=== PATIENT | female | born 1940 | race Caucasian/White ===

== ENCOUNTER 2020-09-05 08:12 | Emergency (ER) | payer OTHER ==
[~2020-09-05] VITALS: Ht 167.6 cm; Wt 71.2 kg
[2020-09-05] MEDS ORDERED: NA P133E RC (09:00)
[2020-09-05] MEDS ORDERED: MAGN400O6 PO (09:00)
[2020-09-05] MEDS ORDERED: ALIR75PE SQ (09:00)
[2020-09-05] MEDS ORDERED: GABA-532 PO (09:00)
[2020-09-05] MEDS ORDERED: POLY17PO4 PO (09:00)
[2020-09-05] MEDS ORDERED: OXYB5TAB16 PO (09:00)
[2020-09-05] MEDS ORDERED: HYDR-4384 PO (09:00)
[2020-09-05] MEDS ORDERED: CHOL100040 PO (09:00)
[2020-09-05] MEDS ORDERED: SENN-261 PO (09:00)
[2020-09-05] MEDS ORDERED: FENO145T21 PO (09:00)
[2020-09-05] MEDS ORDERED: MULT-1018 PO (09:00)
[2020-09-05] MEDS ORDERED: PHEN28OI9 RC (09:00)
[2020-09-05] MEDS ORDERED: CRAN450C PO (09:00)
[2020-09-05] MEDS ORDERED: TICA60TA PO (09:00)
[2020-09-05] MEDS ORDERED: LISI2.5T2 PO (09:00)
[2020-09-05] MEDS ORDERED: BISA10SU11 RC (09:00)
[2020-09-05] MEDS ORDERED: ASPI-1420 PO (09:00)
[2020-09-05] MEDS ORDERED: ACET-868 PO (09:00)
[2020-09-05] MEDS ORDERED: MELA5TAB PO (09:00)
[2020-09-05] MEDS ORDERED: OMEG1CAP55 PO (09:00)
[2020-09-05] MEDS ORDERED: DICL100G16 TP (09:00)
[2020-09-05] MEDS ORDERED: LACT1CAP71 PO (09:00)
[2020-09-05] MEDS ORDERED: HYDR-4354 PO (09:00)
--- NOTE | 2020-09-05 09:04 | NUR ---
PATIENT FABIOLA FROM [facility]. AAOX3, RESPONDS APPROPRIATELY. PATIENT C/O NECK PAIN 8/10 FOR THE PAST 4 DAYS AND STATED THAT SHE HAD A FALL. WILL CARRY OUT ORDERS PER MD.
[2020-09-05 09:05] LABS: BASOPHILS % (AUTO) 0.5 % (0.0-2.0); EOSINOPHILS % (AUTO) 1.9 % (0.0-6.0); HEMATOCRIT 40 % (33-45); HEMOGLOBIN 13.2 g/dL (11.5-14.8); LYMPHOCYTES # (AUTO) 1.6 /CMM (0.8-4.8); LYMPHOCYTES % (AUTO) 22.1 % (20.0-44.0); MEAN CORPUSCULAR HGB CONC 33 g/dl (31.0-36.0); MEAN CORPUSCULAR VOLUME 92 fL (82-100); MONOCYTES # (AUTO) 0.6 /CMM (0.1-1.30); MONOCYTES % (AUTO) 7.9 % (2.0-12.0); NEUTROPHILS # (AUTO) 4.8 /CMM (1.8-8.9); NEUTROPHILS % (AUTO) 67.6 % (43.0-81.0); PLATELET COUNT (AUTO) 358 /CMM (150-450); RED BLOOD CELL COUNT(AUTO) 4.36 MIL/uL (4.0-5.2); WHITE BLOOD COUNT (AUTO) 7.2 K/uL (4.3-11.0)
[2020-09-05 09:18] LABS: CALCIUM, SERUM 8.9 mg/dL (8.5-10.1); CARBON DIOXIDE 27 mmol/L (21-32); CHLORIDE 105 mmol/L (98-107); CREATININE 0.8 mg/dL (0.6-1.3); GLUCOSE 103 mg/dL (74-106); POTASSIUM 3.4 mmol/L (3.5-5.1); SODIUM SERUM 142 mmol/L (136-145); UREA NITROGEN, BLOOD 22 mg/dL (7-18)
[2020-09-05 09:23] LABS: ALANINE AMINOTRANSFERASE 22 U/L (12-78); ALBUMIN 2.9 g/dL (3.4-5.0); ALKALINE PHOSPHATASE 43 U/L (46-116); ASPARTATE AMINOTRANSFERASE 23 U/L (15-37); BILIRUBIN,DIRECT 0.2 mg/dL (0.0-0.2); BILIRUBIN,TOTAL 0.6 mg/dL (0.2-1.0); TOTAL PROTEIN, SERUM 6.3 g/dL (6.4-8.2)
--- NOTE | 2020-09-05 10:45 | NUR ---
CALLED [facility] FOR AMBULANCE TRANSPORT. ETA UP TO 3-4 HOURS. WILL CALL BACK WITH ANY UPDATES ON THE TRANSFER. RESERVATION NUMBER [id number].
--- NOTE | 2020-09-05 11:08 | NUR ---
[facility] CALLED. ETA FOR AMBULANCE TRANSFER IS 30 MINUTES WITH [facility]
--- NOTE | 2020-09-05 11:44 | NUR ---
PATIENT A/OX4, BREATHING EVEN AND UNLABORED, NOS OB NOTED. IV removed. Catheter intact and site benign. Pressure and 4x4 applied to site. No bleeding noted.Patient discharged to home in stable condition. Written and verbal after care instructions given. Patient verbalizes understanding of instruction.
[2020-09-05 11:45] VITALS: BP 129/86
== END 2020-09-05 11:45 ==
LOC: ER 08:20
DX: S13.4XXA Sprain of ligaments of cervical spine, initial encounter (principal); S09.8XXA Other specified injuries of head, initial encounter; R07.81 Pleurodynia; I10 Essential (primary) hypertension; I25.10 Atherosclerotic heart disease of native coronary artery without angina pectoris; G47.00 Insomnia, unspecified; F03.90 Unspecified dementia, unspecified severity, without behavioral disturbance, psychotic disturbance, mood disturbance, and anxiety; Z88.6 Allergy status to analgesic agent; Z79.899 Other long term (current) drug therapy; Z79.82 Long term (current) use of aspirin; W19.XXXA Unspecified fall, initial encounter; Y93.89 Activity, other specified; Y92.89 Other specified places as the place of occurrence of the external cause; Y99.8 Other external cause status
CPT/HCPCS: 36415; 70450-TC; 71045-TC; 72125-TC; 80048-TC; 80076-TC; 84484-TC; 85025-TC

== ENCOUNTER 2020-10-18 15:41 | Emergency (ER) | payer MEDICARE, MEDICAID ==
[~2020-10-18] VITALS: Ht 152.4 cm; Wt 68.0 kg
[~2020-10-18 15:41] MED LIST: ACET-868 PO; ALIR75PE SQ; ASPI-1420 PO; BISA10SU11 RC; CHOL100040 PO; CRAN450C PO; DICL100G16 TP; FENO145T21 PO; GABA-532 PO; HYDR-4354 PO; HYDR-4384 PO; LACT1CAP71 PO; LISI2.5T2 PO; MAGN400O6 PO; MELA5TAB PO; MULT-1018 PO; NA P133E RC; OMEG1CAP55 PO; OXYB5TAB16 PO; PHEN28OI9 RC; POLY17PO4 PO; SENN-261 PO; TICA60TA PO
[2020-10-18 16:53] LABS: BASOPHILS % (AUTO) 0.3 % (0.0-2.0); EOSINOPHILS % (AUTO) 2.5 % (0.0-6.0); HEMATOCRIT 41 % (33-45); HEMOGLOBIN 13.3 g/dL (11.5-14.8); LYMPHOCYTES # (AUTO) 1.8 /CMM (0.8-4.8); LYMPHOCYTES % (AUTO) 24.6 % (20.0-44.0); MEAN CORPUSCULAR HGB CONC 33 g/dl (31.0-36.0); MEAN CORPUSCULAR VOLUME 95 fL (82-100); MONOCYTES # (AUTO) 0.5 /CMM (0.1-1.30); MONOCYTES % (AUTO) 7.6 % (2.0-12.0); NEUTROPHILS # (AUTO) 4.7 /CMM (1.8-8.9); PLATELET COUNT (AUTO) 449 /CMM (150-450); RED BLOOD CELL COUNT(AUTO) 4.32 MIL/uL (4.0-5.2); WHITE BLOOD COUNT (AUTO) 7.2 K/uL (4.3-11.0)
[2020-10-18] MEDS: IV NS 0.9% 1,000 ML BAG IV ONE (16:53)
[2020-10-18] MEDS ORDERED: HYDROCODONE/APAP 5/325MG TABLET ONE (16:54)
[2020-10-18 16:59] LABS: OCCULT BLOOD STOOL NEGATIVE (NEGATIVE)
[2020-10-18] MEDS: HYDROCODONE/APAP 5/325MG TABLET PO ONE (17:00)
[2020-10-18 17:04] LABS: CALCIUM, SERUM 9.1 mg/dL (8.5-10.1); CREATININE 0.9 mg/dL (0.6-1.3)
[2020-10-18 17:10] LABS: ALBUMIN 3.1 g/dL (3.4-5.0); BILIRUBIN,DIRECT 0.1 mg/dL (0.0-0.2); BILIRUBIN,TOTAL 0.2 mg/dL (0.2-1.0); TOTAL PROTEIN, SERUM 6.8 g/dL (6.4-8.2)
[2020-10-18 18:02] LABS: BILIRUBIN,URINE Negative (NEGATIVE); BLOOD, URINE Large Ery/uL (NEGATIVE); COLOR,URINE Pink (YELLOW); LEUKOCYTE ESTERASE ,URINE Small (NEGATIVE); NITRITE, URINE Negative (NEGATIVE); PH,URINE 7.5 (5.0-8.0); PROTEIN,URINE >=300 mg/dl (NEGATIVE); UGLUCOSE Negative (NEGATIVE)
[2020-10-18 18:12] LABS: BACTERIA,URINE 1+ /HPF (None Seen); RBC,URINE 21-50 /HPF (0-2); SQUAMOUS EPITHELIAL CELL,UR Few /HPF (None Seen)
[2020-10-18] MEDS ORDERED: LOPE2CAP PO (18:24)
[2020-10-18] MEDS ORDERED: METO25TA20 PO (18:24)
[2020-10-18 23:06] VITALS: BP 130/75
== END 2020-10-18 23:06 ==
LOC: ER 15:43
DX: S30.817A Abrasion of anus, initial encounter (principal); N39.0 Urinary tract infection, site not specified; R31.0 Gross hematuria; K64.5 Perianal venous thrombosis; K60.2 Anal fissure, unspecified; I25.10 Atherosclerotic heart disease of native coronary artery without angina pectoris; G47.00 Insomnia, unspecified; I10 Essential (primary) hypertension; Z86.73 Personal history of transient ischemic attack (TIA), and cerebral infarction without residual deficits; Z88.5 Allergy status to narcotic agent; Z79.82 Long term (current) use of aspirin; Z79.899 Other long term (current) drug therapy; X58.XXXA Exposure to other specified factors, initial encounter; Y93.89 Activity, other specified; Y92.89 Other specified places as the place of occurrence of the external cause; Y99.8 Other external cause status
CPT/HCPCS: 36415; 80048-TC; 80076-TC; 81001; 82272-TC; 83690-TC; 85025-TC; 85730-TC; 87086-TC; J7030

== ENCOUNTER 2020-12-25 21:58 | Emergency (ER) | payer MEDICARE, OTHER ==
[~2020-12-25] VITALS: Ht 152.4 cm; Wt 68.0 kg
[~2020-12-25 21:58] MED LIST changes: +LOPE2CAP PO; +METO25TA20 PO
--- NOTE | 2020-12-25 22:52 | NUR ---
FABIOLA FROM [facility] TO ER BED 16. AAOX3. NOT IN RESP DISTRESS. BREATHING EVEN AND UNLABORED. BORUGHT IN FOR A R OCIPITAL AREA PAIN WHICH STARTED AFTER SHE SLID OFF A CHAIR EARLIER THIS EVENING AT 6PM. PT DENIES KO. PAIN IS RATD6 05/03. DENIES ANY NAUSEA, VOMMITING AND DIZZYNESS. MD WAS AT THE BEDSIDE FOR EVAL. ORDERS RECEIVED, NOTED ANDNoreen RICHARDS OUT.
--- NOTE | 2020-12-25 23:39 | NUR ---
SPOKE WITH SIRIA FROM [facility]. RES #[id number] AND 1-3 HR ETA.
--- NOTE | 2020-12-26 00:09 | NUR ---
[facility]ulance eta [phone]
--- NOTE | 2020-12-26 02:41 | NUR ---
REPORT GIVEN TO JESS NORTON STAFF BRANT
--- NOTE | 2020-12-26 02:45 | NUR ---
[facility] ambulance at bedside for transport to [facility]
[2020-12-26 03:14] VITALS: BP 110/65
== END 2020-12-26 03:15 ==
LOC: ER 22:00
DX: R51.9 Headache, unspecified (principal); M54.2 Cervicalgia; I10 Essential (primary) hypertension; I25.10 Atherosclerotic heart disease of native coronary artery without angina pectoris; G47.00 Insomnia, unspecified; Z86.73 Personal history of transient ischemic attack (TIA), and cerebral infarction without residual deficits; Z88.6 Allergy status to analgesic agent; Z79.899 Other long term (current) drug therapy; Z79.82 Long term (current) use of aspirin; W01.0XXA Fall on same level from slipping, tripping and stumbling without subsequent striking against object, initial encounter; Y93.89 Activity, other specified; Y92.89 Other specified places as the place of occurrence of the external cause; Y99.8 Other external cause status
CPT/HCPCS: 70450-TC; 72125-TC

== ENCOUNTER 2021-04-28 00:29 | Emergency (ER) | payer MEDICARE, OTHER ==
[~2021-04-28] VITALS: Ht 152.4 cm; Wt 68.0 kg
--- NOTE | 2021-04-28 00:32 | NUR ---
pt bibpa c/o urinary frequency and burning. Pt aaox4 breathing evenly and unlabored. Pt states "i was here 3weeks ago for UTI and kidney stone, I think I still have a UTI" Pt attached to monitor and pox. Pt given blanket and call light within reach
--- NOTE | 2021-04-28 00:58 | NUR ---
lab at bedside
--- NOTE | 2021-04-28 01:13 | NUR ---
urine obtained and sent to lab
[2021-04-28 01:15] LABS: BASOPHILS % (AUTO) 0.3 % (0.0-2.0); EOSINOPHILS % (AUTO) 2.9 % (0.0-6.0); HEMATOCRIT 40 % (33-45); HEMOGLOBIN 12.7 g/dL (11.5-14.8); LYMPHOCYTES # (AUTO) 2.8 /CMM (0.8-4.8); MEAN CORPUSCULAR HGB CONC 32 g/dl (31.0-36.0); MEAN CORPUSCULAR VOLUME 94 fL (82-100); MONOCYTES # (AUTO) 0.8 /CMM (0.1-1.30); NEUTROPHILS # (AUTO) 6.5 /CMM (1.8-8.9); NEUTROPHILS % (AUTO) 61.8 % (43.0-81.0); PLATELET COUNT (AUTO) 298 /CMM (150-450); RED BLOOD CELL COUNT(AUTO) 4.31 MIL/uL (4.0-5.2); WHITE BLOOD COUNT (AUTO) 10.5 K/uL (4.3-11.0)
--- NOTE | 2021-04-28 01:33 | NUR ---
called lab for f/u on urine.
[2021-04-28 01:40] LABS: BILIRUBIN,URINE Negative (NEGATIVE); COLOR,URINE YELLOW (YELLOW); LEUKOCYTE ESTERASE ,URINE Moderate (NEGATIVE); NITRITE, URINE Negative (NEGATIVE); PH,URINE 7.5 (5.0-8.0); PROTEIN,URINE 100 mg/dl (NEGATIVE); UGLUCOSE Negative (NEGATIVE); UROBILINOGEN,URINE 0.2 EU/dL (0.2)
[2021-04-28 01:42] LABS: CALCIUM, SERUM 9.4 mg/dL (8.5-10.1); CARBON DIOXIDE 29 mmol/L (21-32); CHLORIDE 104 mmol/L (98-107); CREATININE 0.8 mg/dL (0.6-1.3); GLUCOSE 113 mg/dL (74-106); POTASSIUM 4.8 mmol/L (3.5-5.1); SODIUM SERUM 139 mmol/L (136-145); UREA NITROGEN, BLOOD 32 mg/dL (7-18)
[2021-04-28 01:51] LABS: ALANINE AMINOTRANSFERASE 12 U/L (12-78); ALBUMIN 3.5 g/dL (3.4-5.0); ALKALINE PHOSPHATASE 48 U/L (46-116); ASPARTATE AMINOTRANSFERASE 18 U/L (15-37); BILIRUBIN,DIRECT 0.1 mg/dL (0.0-0.2); BILIRUBIN,TOTAL 0.3 mg/dL (0.2-1.0); LIPASE 403 U/L (73-393); TOTAL PROTEIN, SERUM 6.6 g/dL (6.4-8.2)
--- NOTE | 2021-04-28 02:06 | NUR ---
called lab to f/u on urine
[2021-04-28 02:22] LABS: BACTERIA,URINE Few /HPF (None Seen); SQUAMOUS EPITHELIAL CELL,UR Few /HPF (None Seen)
--- NOTE | 2021-04-28 02:22 | NUR ---
per lab, another five min for urine results
[2021-04-28 02:23] LABS: URINE AMORPHOUS PHOSPHATES Few /HPF (None Seen)
--- NOTE | 2021-04-28 02:51 | NUR ---
pt taken to ct
--- NOTE | 2021-04-28 04:15 | NUR ---
called [facility] to have image read
[2021-04-28] MEDS ORDERED: CEPH500T PO (04:59)
[2021-04-28] MEDS ORDERED: PHEN-704 PO (04:59)
[2021-04-28] MEDS ORDERED: CEPHALEXIN MONOHYDRATE 500 MG CAPSULE PO ONE ×2 (05:00→05:16)
--- NOTE | 2021-04-28 05:36 | NUR ---
[facility] ETA 830AM
--- NOTE | 2021-04-28 05:36 | NUR ---
attempted to give report to Ratna Patel, no answer
--- NOTE | 2021-04-28 05:37 | NUR ---
Julia velasquez in [facility] - 04/28/21 at 0537 by GAB[facility] transport eta [phone]
--- NOTE | 2021-04-28 05:37 | NUR ---
[facility] transport eta [phone]
--- NOTE | 2021-04-28 05:57 | NUR ---
attempted to give report to nicole haile for a second time, no answer
--- NOTE | 2021-04-28 06:40 | NUR ---
gave report to EMS
--- NOTE | 2021-04-28 06:41 | NUR ---
REPORT GIVEN TO JESS NORTON STAFF MELVI.
[2021-04-28 06:44] VITALS: BP 124/50
--- NOTE | 2021-04-28 06:45 | NUR ---
Patient discharged to home in stable condition. Written and verbal after care instructions given. Patient verbalizes understanding of instruction. Pt picked up by [facility] ambulance
== END 2021-04-28 06:45 ==
LOC: ER 00:31
DX: N30.00 Acute cystitis without hematuria (principal); I10 Essential (primary) hypertension; I25.10 Atherosclerotic heart disease of native coronary artery without angina pectoris; G47.00 Insomnia, unspecified; Z86.73 Personal history of transient ischemic attack (TIA), and cerebral infarction without residual deficits; Z88.6 Allergy status to analgesic agent; Z79.899 Other long term (current) drug therapy; Z79.82 Long term (current) use of aspirin
CPT/HCPCS: 36415; 80048-TC; 80076-TC; 81001; 83690-TC; 84484-TC; 85025-TC; 85730-TC; 87086-TC; 87186-TC

== ENCOUNTER 2022-04-12 22:52 | Emergency (ER) | payer MEDICARE, OTHER ==
[~2022-04-12] VITALS: Ht 167.6 cm; Wt 77.1 kg
[~2022-04-12 22:52] MED LIST changes: +CEPH500T PO; +PHEN-704 PO
--- NOTE | 2022-04-12 22:56 | NUR ---
FABIOLA FROM SNF C/O ABD PAIN AND BACK PAIN TOOK NORCO AT 2215. PT A/OX3. TOLERATING R/A WELL WITH NO SOB. CONNECTED PT TO POX AND MONITOR
--- NOTE | 2022-04-12 23:18 | NUR ---
PROJECT MANAGEMENT ENGINEER AT PT'S BEDSIDE
--- NOTE | 2022-04-12 23:28 | NUR ---
PT TAKEN TO CT VIA J[facility]
--- NOTE | 2022-04-12 23:42 | NUR ---
PT RETURNED TO ER BED [address]
[2022-04-12 23:55] LABS: BASOPHILS % (AUTO) 0.4 % (0.0-2.0); EOSINOPHILS % (AUTO) 4.6 % (0.0-6.0); HEMATOCRIT 39 % (33-45); HEMOGLOBIN 12.7 g/dL (11.5-14.8); MEAN CORPUSCULAR HGB CONC 33 g/dl (31.0-36.0); MEAN CORPUSCULAR VOLUME 90 fL (82-100); MONOCYTES # (AUTO) 0.5 K/uL (0.1-1.30); MONOCYTES % (AUTO) 7.7 % (2.0-12.0); NEUTROPHILS # (AUTO) 3.6 K/uL (1.8-8.9); NEUTROPHILS % (AUTO) 56.3 % (43.0-81.0); PLATELET COUNT (AUTO) 338 K/uL (150-450); WHITE BLOOD COUNT (AUTO) 6.4 K/uL (4.3-11.0)
--- NOTE | 2022-04-13 00:01 | NUR ---
URINE COLLECTEC AND SENT TO LAB
[2022-04-13 00:07] LABS: CARBON DIOXIDE 30 mmol/L (21-32); CHLORIDE 107 mmol/L (98-107); CREATININE 1.1 mg/dL (0.6-1.3); GLUCOSE 107 mg/dL (74-106); POTASSIUM 3.6 mmol/L (3.5-5.1); SODIUM SERUM 145 mmol/L (136-145); UREA NITROGEN, BLOOD 35 mg/dL (7-18)
[2022-04-13 00:20] LABS: ALANINE AMINOTRANSFERASE 17 U/L (12-78); ALBUMIN 3.5 g/dL (3.4-5.0); ALKALINE PHOSPHATASE 53 U/L (46-116); ASPARTATE AMINOTRANSFERASE 26 U/L (15-37); BILIRUBIN,DIRECT 0.1 mg/dL (0.0-0.2); BILIRUBIN,TOTAL 0.3 mg/dL (0.2-1.0); LIPASE 342 U/L (73-393); TOTAL PROTEIN, SERUM 6.6 g/dL (6.4-8.2)
[2022-04-13 00:50] LABS: BILIRUBIN,URINE NEGATIVE (NEGATIVE); COLOR,URINE YELLOW (YELLOW); LEUKOCYTE ESTERASE ,URINE LARGE (NEGATIVE); NITRITE, URINE NEGATIVE (NEGATIVE); PROTEIN,URINE TRACE mg/dl (NEGATIVE); UGLUCOSE NEGATIVE (NEGATIVE); UROBILINOGEN,URINE 0.2 EU/dL (0.2)
[2022-04-13] MEDS ORDERED: SULF1TAB48 PO (01:00)
--- NOTE | 2022-04-13 01:22 | NUR ---
[facility] ARRANGED 15-20 MINS
--- NOTE | 2022-04-13 01:27 | NUR ---
REPORT GIVEN TO SOFIA [facility]erald[facility] ARCHER
--- NOTE | 2022-04-13 01:41 | NUR ---
PT DISCHARGED BACK TO [facility] VIA [id number]. WRITTEN AND VERBAL AFTERCARE INSTRUCTIONS PROVIDED TO PATIENT, AND PT REPORTED UNDERSTANDING OF INSTRUCTIONS. ALL V/S WNL AT DISCHARGE.
[2022-04-13 01:42] VITALS: BP 125/49
[2022-04-13 06:49] LABS: BACTERIA,URINE 2+ /HPF (None Seen)
== END 2022-04-13 01:46 ==
LOC: ER 22:55
DX: N39.0 Urinary tract infection, site not specified (principal); I10 Essential (primary) hypertension; Z87.440 Personal history of urinary (tract) infections; Z87.42 Personal history of other diseases of the female genital tract; Z88.8 Allergy status to other drugs, medicaments and biological substances; Z79.899 Other long term (current) drug therapy
CPT/HCPCS: 36415; 80048-TC; 80076-TC; 81001; 83690-TC; 85025-TC; 87086-TC

== ENCOUNTER 2022-06-01 14:27 | Emergency (ER) | payer MEDICARE, OTHER ==
[~2022-06-01] VITALS: Ht 157.5 cm; Wt 68.0 kg
[~2022-06-01 14:27] MED LIST changes: +SULF1TAB48 PO
--- NOTE | 2022-06-01 15:59 | NUR ---
LOSS PREVENTION RESEARCH ENGINEER AT BEDSIDE FOR BLOOD DRAW
--- NOTE | 2022-06-01 16:14 | NUR ---
UNABLE TO PROVIDE URINE AT THIS TIME
[2022-06-01 16:21] LABS: BASOPHILS # (AUTO) 0.1 K/uL (0.0-0.2); BASOPHILS % (AUTO) 0.6 % (0.0-2.0); EOSINOPHILS % (AUTO) 4.2 % (0.0-6.0); HEMATOCRIT 35 % (33-45); HEMOGLOBIN 11.5 g/dL (11.5-14.8); LYMPHOCYTES # (AUTO) 1.9 K/uL (0.8-4.8); LYMPHOCYTES % (AUTO) 23.2 % (20.0-44.0); MEAN CORPUSCULAR HGB CONC 32 g/dl (31.0-36.0); MEAN CORPUSCULAR VOLUME 94 fL (82-100); MONOCYTES # (AUTO) 0.5 K/uL (0.1-1.30); MONOCYTES % (AUTO) 6.5 % (2.0-12.0); NEUTROPHILS # (AUTO) 5.3 K/uL (1.8-8.9); NEUTROPHILS % (AUTO) 65.5 % (43.0-81.0); PLATELET COUNT (AUTO) 283 K/uL (150-450); RED BLOOD CELL COUNT(AUTO) 3.78 MIL/uL (4.0-5.2); WHITE BLOOD COUNT (AUTO) 8.2 K/uL (4.3-11.0)
[2022-06-01] MEDS ORDERED: NITR50CA PO (16:22)
[2022-06-01] MEDS ORDERED: FURO-144 PO (16:22)
[2022-06-01] MEDS ORDERED: ATOR40TA PO (16:22)
[2022-06-01] MEDS ORDERED: TOLT4CAP14 PO (16:22)
--- NOTE | 2022-06-01 16:39 | NUR ---
URINE COLLECTED AND SENT TO LAB
--- NOTE | 2022-06-01 16:41 | NUR ---
TAKEN SOLUTION SPEC CT VIA [facility]
[2022-06-01] MEDS ORDERED: ACETAMINOPHEN 325 MG TABLET PO ONE (17:00)
[2022-06-01 17:02] LABS: ALANINE AMINOTRANSFERASE 35 U/L (12-78); ALKALINE PHOSPHATASE 50 U/L (46-116); ASPARTATE AMINOTRANSFERASE 53 U/L (15-37); BILIRUBIN,DIRECT 0.1 mg/dL (0.0-0.2); BILIRUBIN,TOTAL 0.4 mg/dL (0.2-1.0); CALCIUM, SERUM 8.7 mg/dL (8.5-10.1); CARBON DIOXIDE 25 mmol/L (21-32); CHLORIDE 103 mmol/L (98-107); CREATININE 1.5 mg/dL (0.6-1.3); GLUCOSE 104 mg/dL (74-106); LIPASE 226 U/L (73-393); POTASSIUM 3.7 mmol/L (3.5-5.1); SODIUM SERUM 138 mmol/L (136-145); TOTAL PROTEIN, SERUM 6.3 g/dL (6.4-8.2); UREA NITROGEN, BLOOD 37 mg/dL (7-18)
[2022-06-01] MEDS ORDERED: ACETAMINOPHEN 325 MG TABLET ONE (17:07)
[2022-06-01] MEDS ORDERED: HYDROCODONE/APAP 5/325MG TABLET ONE (17:22)
[2022-06-01] MEDS ORDERED: HYDROCODONE/APAP 5/325MG TABLET PO ONE (17:30)
[2022-06-01 17:50] LABS: BILIRUBIN,URINE NEGATIVE (NEGATIVE); COLOR,URINE YELLOW (YELLOW); LEUKOCYTE ESTERASE ,URINE MODERATE (NEGATIVE); NITRITE, URINE NEGATIVE (NEGATIVE); PH,URINE 8.5 (5.0-8.0); PROTEIN,URINE NEGATIVE (NEGATIVE); UGLUCOSE NEGATIVE (NEGATIVE); UROBILINOGEN,URINE 0.2 EU/dL (0.2)
[2022-06-01] MEDS ORDERED: CEFTAZIDIME 2 G in IV D5W 50 ML IV ONE (18:00)
[2022-06-01] MEDS ORDERED: IV NS 0.9% 500 ML IV ONE (18:00)
[2022-06-01] MEDS ORDERED: CEFD300C3 PO (18:10)
[2022-06-01 18:12] LABS: BACTERIA,URINE 1+ /HPF (None Seen); MUCUS,URINE Few /LPF (None Seen); RBC,URINE 21-50 /HPF (0-2); WBC,URINE 21-50 /HPF (0-3)
[2022-06-01 18:50] VITALS: BP 118/60
--- NOTE | 2022-06-01 19:15 | NUR ---
[facility] TRANSPORT ETA 20 MINS VIA [facility].
--- NOTE | 2022-06-01 19:22 | NUR ---
REPORT GIVEN TO SOFIA FROM [facility] FOR BRANDO
--- NOTE | 2022-06-01 20:04 | NUR ---
IV removed. Catheter intact and site benign. Pressure and 4x4 applied to site. No bleeding noted.
--- NOTE | 2022-06-01 20:05 | NUR ---
REPORT GIVEN TO [facility] FOR PT TO DC TO [facility]
== END 2022-06-01 20:07 ==
LOC: ER 14:35
DX: N39.0 Urinary tract infection, site not specified (principal); R10.2 Pelvic and perineal pain; I10 Essential (primary) hypertension; Z88.8 Allergy status to other drugs, medicaments and biological substances; Z79.899 Other long term (current) drug therapy
CPT/HCPCS: 36415; 74176; 80048; 80076; 81001; 83690; 85025; 87077; 87086; 87186; 96365; 99284; J0713; J7040; J7060

== ENCOUNTER 2022-06-29 18:35 | Inpatient (IN) | payer MEDICARE, OTHER ==
[~2022-06-29] VITALS: Ht 152.4 cm; Wt 66.2 kg
[~2022-06-29 18:35] MED LIST changes: -ALIR75PE SQ; +ATOR40TA PO; -BISA10SU11 RC; +CEFD300C3 PO; -CEPH500T PO; -CHOL100040 PO; -CRAN450C PO; -DICL100G16 TP; +FURO-144 PO; -HYDR-4384 PO; -LACT1CAP71 PO; -MAGN400O6 PO; -MULT-1018 PO; -NA P133E RC; +NITR50CA PO; -OXYB5TAB16 PO; -PHEN-704 PO; -PHEN28OI9 RC; -POLY17PO4 PO; -SENN-261 PO; -SULF1TAB48 PO; +TOLT4CAP14 PO
--- NOTE | 2022-06-29 18:44 | NUR ---
FABIOLA FROM [facility] C/O ABDOMINAL PAIN AND DIARRHEA X2DAYS. PT STATED HE PAIN IS 7/10 ON PAIN SCALE. VITALS ARE WITHIN NORMAL LIMTIS. NO RESP DISTRESS NOTED ON ROOM AIR. AWAITING MD POLANCO.
--- NOTE | 2022-06-29 18:52 | NUR ---
IV ETSBLIHASED L FA 20G. LABS DRAWNA ND COLLECTED AT BEDSIDE.
--- NOTE | 2022-06-29 18:53 | NUR ---
PT UNABLE TO PROVIDE URINE AT THIS TIME, REFUSED URINARY CATHETER.
--- NOTE | 2022-06-29 18:53 | NUR ---
Julia velasquez in [facility] - 06/29/22 at 1920 by DIANE PT UNABLE TO PROVIDE URINE AT THIS TIME, REFUSED URINATRY CATHETER.
[2022-06-29] MEDS ORDERED: IV NS 0.9% 500 ML BAG IV ONE (19:00)
--- NOTE | 2022-06-29 19:07 | NUR ---
DR PRESCOTT AT BEDSIDE FOR EVAL.
[2022-06-29] MEDS ORDERED: ONDANSETRON HCL/PF 4 MG/2 ML VIAL IV ONE (19:30)
[2022-06-29] MEDS ORDERED: KETOROLAC TROMETHAMINE INJ 30 MG/ML VIAL IV ONE (19:30)
--- NOTE | 2022-06-29 19:30 | NUR ---
REPORT RECEIVED FROM CATHERINE AUGUSTIN. PATIENT CAME WITH COMPLAINT OF ABDOMINAL PAIN WITH DIARRHEA X2 DAYS. PATIENT HAS LEFT SIDED WEAKNESS. PER PATIENT, SHE HAD HX OF STROKE. PATIENT HAS PERIPHERAL LINE ON LEFT FA USING G20 NEEDLE. PATIENT IS AAOX4. ABLE TO MAKE NEEDS KNOWN. ENCOURAGED TO URINATE SO WE CAN SEND SAMPLE FOR URINALYSIS. ATTACHED TO MONITOR. VITALS CHECKED.
[2022-06-29 19:38] LABS: CALCIUM, SERUM 8.7 mg/dL (8.5-10.1); CARBON DIOXIDE 28 mmol/L (21-32); CHLORIDE 104 mmol/L (98-107); CREATININE 1.6 mg/dL (0.6-1.3); GLUCOSE 120 mg/dL (74-106); POTASSIUM 3.6 mmol/L (3.5-5.1); SODIUM SERUM 140 mmol/L (136-145); UREA NITROGEN, BLOOD 33 mg/dL (7-18)
[2022-06-29 19:44] LABS: ALANINE AMINOTRANSFERASE 23 U/L (12-78); ALBUMIN 3.1 g/dL (3.4-5.0); ALKALINE PHOSPHATASE 60 U/L (46-116); ASPARTATE AMINOTRANSFERASE 33 U/L (15-37); BILIRUBIN,DIRECT 0.2 mg/dL (0.0-0.2); BILIRUBIN,TOTAL 0.4 mg/dL (0.2-1.0); TOTAL PROTEIN, SERUM 6.2 g/dL (6.4-8.2)
[2022-06-29] MEDS ORDERED: KETOROLAC TROMETHAMINE INJ 30 MG/ML VIAL ONE ×2 (19:45→21:07)
[2022-06-29] MEDS ORDERED: ONDANSETRON HCL/PF 4 MG/2 ML VIAL ONE ×2 (19:45→21:07)
[2022-06-29 19:55] LABS: BASOPHILS % (AUTO) 0.5 % (0.0-2.0); EOSINOPHILS % (AUTO) 3.9 % (0.0-6.0); HEMATOCRIT 33 % (33-45); HEMOGLOBIN 11.3 g/dL (11.5-14.8); LYMPHOCYTES # (AUTO) 1.6 K/uL (0.8-4.8); LYMPHOCYTES % (AUTO) 22.3 % (20.0-44.0); MEAN CORPUSCULAR HGB CONC 34 g/dl (31.0-36.0); MEAN CORPUSCULAR VOLUME 91 fL (82-100); MONOCYTES # (AUTO) 0.6 K/uL (0.1-1.30); MONOCYTES % (AUTO) 8.6 % (2.0-12.0); NEUTROPHILS # (AUTO) 4.6 K/uL (1.8-8.9); NEUTROPHILS % (AUTO) 64.7 % (43.0-81.0); PLATELET COUNT (AUTO) 395 K/uL (150-450); RED BLOOD CELL COUNT(AUTO) 3.68 MIL/uL (4.0-5.2); WHITE BLOOD COUNT (AUTO) 7.1 K/uL (4.3-11.0)
--- NOTE | 2022-06-29 20:15 | NUR ---
URINE SPECIMEN SENT TO LAB
[2022-06-29 20:52] LABS: BILIRUBIN,URINE NEGATIVE (NEGATIVE); COLOR,URINE YELLOW (YELLOW); LEUKOCYTE ESTERASE ,URINE SMALL (NEGATIVE); NITRITE, URINE NEGATIVE (NEGATIVE); PROTEIN,URINE 30 mg/dl (NEGATIVE); UGLUCOSE NEGATIVE (NEGATIVE); UROBILINOGEN,URINE 0.2 EU/dL (0.2)
[2022-06-29 20:56] LABS: BACTERIA,URINE 2+ /HPF (None Seen); RBC,URINE 21-50 /HPF (0-2); SQUAMOUS EPITHELIAL CELL,UR 0-2 /HPF (None Seen); URINE AMORPHOUS PHOSPHATES Many /HPF (None Seen)
[2022-06-29] MEDS ORDERED: CEFTRIAXONE 1GM BAG (ER ONLY) 50 ML IV ONE (21:00)
--- NOTE | 2022-06-29 21:16 | NUR ---
COVID SWAB COLLECTED AND SENT TO LAB
[2022-06-30] MEDS ORDERED: LOPERAMIDE HCL (2 MG CAP) 2 MG CAPSULE PO PRN (00:30)
[2022-06-30] MEDS ORDERED: ACETAMINOPHEN 325 MG TABLET PO PRN (00:30)
[2022-06-30] MEDS ORDERED: MAGNESIUM HYDROXIDE 30 ML UDC PO PRN (00:30)
[2022-06-30] MEDS ORDERED: ZOLPIDEM TARTRATE 5 MG TABLET PO PRN (00:30)
[2022-06-30] MEDS ORDERED: ONDANSETRON HCL/PF 4 MG/2 ML VIAL IVP PRN (00:30)
[2022-06-30] MEDS ORDERED: Z GUARD REMEDY 4 OZ OINT TP PRN (00:30)
[2022-06-30] MEDS ORDERED: MAG HYDROX/AL HYDROX/SIMETH 30 ML UDC PO PRN (00:30)
--- NOTE | 2022-06-30 00:50 | NUR ---
KRISTINE OF ABDOMEN DONE
--- NOTE | 2022-06-30 01:30 | NUR ---
PATIENT IS SLEEPING PEACEFULLY BUT AROUSABLE. NEEDS MET.
[2022-06-30] MEDS ORDERED: CEFEPIME 1 GM in IV D5W 50 ML IV ONE (02:00)
--- NOTE | 2022-06-30 02:30 | NUR ---
REPORT GIVEN TO CATHERINE VELASQUEZ.
--- NOTE | 2022-06-30 03:25 | NUR ---
TRANSFERRED TO ROOM 323-2 VIA STRETCHER.
[2022-06-30 03:30] VITALS: BP 115/40
--- NOTE | 2022-06-30 03:30 | NUR ---
MS BRUISE TRIMMER NOTES RECEIVED FROM EMERGENCY ROOM VIA JAD THIS 81 YO FEMALE,ALERT,ORIENTED X3,WITH CHIEF COMPLAINTS OF ABDOMINAL PAIN AND DIARRHEA X 2DAYS.DIAGNOSIS OF RECURRENT UTI,WITH SALINE LOCK LEFT FORE ARM #20 INTACT AND PATENT.NOTED REDNESS ON LEFT UPPER BACK THIGH,CLEANSE WITH SOAP AND WATER ,PAT DRY AND APPLIED REMEDY.BILATERAL HEEL REDNESS OFF LOAD TO BED.WITH UPPER DENTURE WHICH PATIENT WEARING IT.PATIENT WEARING YELLOW EARRINGS,2 YELLOW NECKLACE,FIVE ASSORTED YELLOW RINGS.WITH KNOWN HX OF STROKE,CVA,WITH LEFT HEMIPARESIS.KEPT COMFORTABLY BED.NPO ORDERED,PATIENT KNOWS.CALL LIGHT IN REACH,NEEDS ANTICIPATED.
[2022-06-30] MEDS: IV NS 0.9% 1,000 ML IV PRN (03:57)
--- NOTE | 2022-06-30 03:57 | NUR ---
MS RN NOTES STARTED ON IVF,NS AT 75ML/HR RATE ORDERED.
[2022-06-30 05:00] VITALS: BP 138/62
[2022-06-30] MEDS ORDERED: CEFEPIME 1 GM VIAL ONE (05:15)
--- NOTE | 2022-06-30 06:51 | NUR ---
MS RN NOTES ABLE TO SLEEP SINCE CAME IN FROM ER,IVF INFUSING WELL ON LEFT ARM SALINE LOCK,DUE CEFEPIME STARTED,NO REACTION NOTED.ENDORSED TO DAY NURSE FOR BRANDO.
--- NOTE | 2022-06-30 07:00 | NUR ---
MS RN OPENING NOTES PATIENT LAYING IN BED, A/O X 3, ABLE TO MAKE NEEDS KNOWN. TOLERATING WELL ON ROOM AIR WITH NO S/S RESPIRATORY DISTRESS. L FA # 20 SL CLEAN, INTACT, AND FLUSHING WELL. SAFETY MEASURES IN PLACE: BED IN LOWEST LOCKED POSITION, SIDE RAILS UP X 2, CALL LIGHT WITHIN REACH. WILL CONTINUE TO MONITOR.
[2022-06-30] MEDS: HYDROCODONE/APAP 10/325MG TABLET PO PRN ×3 (07:45→18:25)
--- NOTE | 2022-06-30 07:47 | NUR ---
MS RN NOTES PATIENT PRESENTED WITH 8/10 GENERALIZED PAIN AND REQUESTED PAIN MED. PATIENT A/O X 3 AND STATED SHE HAS NO ALLERGY OR INTOLERANCE TO NORCO PAIN MEDICATION. PRN NORCO 10/325 MG ADMINISTERED ORDERED. WILL CONTINUE TO MONITOR FOR S/S PAIN.
[2022-06-30 08:00] VITALS: BP 91/46
[2022-06-30] MEDS: METOPROLOL TARTRATE 25 MG TABLET PO SCH ×2 (09:00→16:44)
[2022-06-30] MEDS ORDERED: Medication Not On Formulary EA (Ticagrelor (Brilinta) 60 MG) PO SCH (09:00)
[2022-06-30] MEDS: FUROSEMIDE 40 MG TABLET PO SCH (09:00)
[2022-06-30] MEDS: GABAPENTIN 300 MG CAPSULE PO SCH ×3 (10:12→16:44)
[2022-06-30] MEDS: ASPIRIN EC 81 MG TABLET.DR PO SCH (10:12)
[2022-06-30] MEDS: CEFEPIME 1 GM in IV D5W 50 ML IV SCH (10:25)
[2022-06-30] MEDS: OXYBUTYNIN CHLORIDE 5 MG TABLET PO SCH ×2 (12:25→16:44)
[2022-06-30 16:00] VITALS: BP 110/52
--- NOTE | 2022-06-30 19:00 | NUR ---
MS RN CLOSING NOTES PATIENT LAYING IN BED, A/O X 3, ABLE TO MAKE NEEDS KNOWN. TOLERATING WELL ON ROOM AIR WITH NO S/S RESPIRATORY DISTRESS. NO COMPLAINTS OF PAIN OR DISCOMFORT AT THIS TIME. L FA # 20 SL CLEAN, INTACT, AND INFUSING NS @ 75 ML/HR. SAFETY MEASURES IN PLACE: BED IN LOWEST LOCKED POSITION, SIDE RAILS UP X 2, CALL LIGHT WITHIN REACH. ALL NEEDS MET. PAIN MEDS ADMINISTERED ORDERED. PATIENT TURNED Q2H. WILL ENDORSE TO LETTER STAMPING MACHINE OPERATOR FOR BRANDO.
--- NOTE | 2022-06-30 19:30 | NUR ---
MS RN OPENING NOTE RECEIVED PT AWAKE IN BED. A/O X3 AND ABLE TO MAKE NEEDS KNOWN. PT STABLE ON ROOM AIR. NO SOB OR S/S OF RESPIRATORY DISTRESS. BREATHING EVEN AND UNLABORED. IV ACCESS LFA 20 GAUGE, INTACT AND PATENT, RUNNING NS @ 75 ML/HR. SAFETY PRECAUTIONS IN PLACE. BED IN LOWEST LOCKED POSITION, HOB ELEVATED, SIDE RAILS UP X2, AND CALL LIGHT AND TABLE WITHIN REACH. ALL NEEDS MET AT THIS TIME.
[2022-06-30 20:23] VITALS: BP 137/69
[2022-06-30] MEDS: ATORVASTATIN 40 MG TABLET PO SCH (21:07)
[2022-06-30] MEDS: FENOFIBRATE NANOCRYS (145 MG) 145 MG TABLET PO SCH (21:07)
[2022-06-30] MEDS: HEPARIN SODIUM, PORCINE 5000 UNITS/1 ML VIAL SQ SCH (21:08)
[2022-06-30 22:17] LABS: LIPASE 183 U/L (73-393)
--- NOTE | 2022-07-01 05:35 | NUR ---
RN NOTE PT REFUSING BEING CHANGED AND IVF AT THIS TIME. PT STATED SHE JUST WANTS TO SLEEP. EXPLAINED RISKS AND CONSEQUENCES OF REFUSAL. PT STILL REFUSED.
--- NOTE | 2022-07-01 06:22 | NUR ---
RN NOTE PT AGREED TO BED BATH AND LINEN CHANGE. COMPLETED AT THIS TIME.
[2022-07-01 06:37] LABS: BASOPHILS % (AUTO) 0.5 % (0.0-2.0); EOSINOPHILS % (AUTO) 5.5 % (0.0-6.0); HEMATOCRIT 33 % (33-45); LYMPHOCYTES # (AUTO) 1.2 K/uL (0.8-4.8); LYMPHOCYTES % (AUTO) 20.7 % (20.0-44.0); MEAN CORPUSCULAR HGB CONC 33 g/dl (31.0-36.0); MEAN CORPUSCULAR VOLUME 90 fL (82-100); MONOCYTES # (AUTO) 0.4 K/uL (0.1-1.30); MONOCYTES % (AUTO) 7.4 % (2.0-12.0); NEUTROPHILS # (AUTO) 3.9 K/uL (1.8-8.9); NEUTROPHILS % (AUTO) 65.9 % (43.0-81.0); PLATELET COUNT (AUTO) 333 K/uL (150-450); RED BLOOD CELL COUNT(AUTO) 3.64 MIL/uL (4.0-5.2); WHITE BLOOD COUNT (AUTO) 5.8 K/uL (4.3-11.0)
[2022-07-01 06:43] LABS: CALCIUM, SERUM 8.3 mg/dL (8.5-10.1); CREATININE 1.1 mg/dL (0.6-1.3); POTASSIUM 4.4 mmol/L (3.5-5.1)
--- NOTE | 2022-07-01 06:46 | NUR ---
MS RN CLOSING NOTE PT AWAKE IN BED. A/O X3 AND ABLE TO MAKE NEEDS KNOWN. PT STABLE ON ROOM AIR. NO SOB OR S/S OF RESPIRATORY DISTRESS. BREATHING EVEN AND UNLABORED. IV ACCESS LFA 20 GAUGE, INTACT AND PATENT, REFUSING IVF AT THIS TIME. ALL DUE MEDS GIVEN ORDERED. TURNED AND REPOSITIONED Q2H. SAFETY PRECAUTIONS IN PLACE AT ALL TIMES. BED IN LOWEST LOCKED POSITION, HOB ELEVATED, SIDE RAILS UP X2, AND CALL LIGHT AND TABLE WITHIN REACH. ALL NEEDS MET AT THIS TIME AND WILL ENDORSE TO ONCOMING NURSE FOR BRANDO.
[2022-07-01 06:55] LABS: MAGNESIUM 2.1 mg/dL (1.8-2.4); PHOSPHORUS 3.1 mg/dL (2.5-4.9)
--- NOTE | 2022-07-01 07:30 | NUR ---
MS RN OPENING NOTE RECEIVED PT ASLEEP IN BED BUT EASILY ROUSED, A/O X3 AND ABLE TO MAKE NEEDS KNOWN. PT STABLE ON ROOM AIR. NO SOB OR S/S OF RESPIRATORY DISTRESS. BREATHING EVEN AND UNLABORED. IV ACCESS LFA #20 GAUGE, INTACT AND PATENT, RUNNING NS @ 75 ML/HR. SAFETY PRECAUTIONS IN PLACE. BED IN LOWEST LOCKED POSITION, HOB ELEVATED, SIDE RAILS UP X2, AND CALL LIGHT AND TABLE WITHIN REACH, WILL CONT TO MONITOR.
[2022-07-01] MEDS: HYDROCODONE/APAP 10/325MG TABLET PO PRN ×3 (07:49→21:36)
[2022-07-01] MEDS: PANTOPRAZOLE 40 MG TABLET.DR PO SCH (07:50)
[2022-07-01] MEDS: HEPARIN SODIUM, PORCINE 5000 UNITS/1 ML VIAL SQ SCH ×2 (08:32→21:27)
[2022-07-01] MEDS: OXYBUTYNIN CHLORIDE 5 MG TABLET PO SCH ×3 (08:33→17:23)
[2022-07-01] MEDS: ASPIRIN EC 81 MG TABLET.DR PO SCH (08:33)
[2022-07-01] MEDS: METOPROLOL TARTRATE 25 MG TABLET PO SCH ×3 (08:34→17:00)
[2022-07-01] MEDS: GABAPENTIN 300 MG CAPSULE PO SCH ×3 (08:34→17:24)
[2022-07-01] MEDS: FUROSEMIDE 40 MG TABLET PO SCH (08:35)
[2022-07-01] MEDS: CEFEPIME 1 GM in IV D5W 50 ML IV SCH (11:39)
[2022-07-01] MEDS: IV NS 0.9% 1,000 ML IV PRN (13:19)
--- NOTE | 2022-07-01 19:36 | NUR ---
MS RN OPENING NOTE RECEIVED PT IN BED SLEEPING BUT EASY TO AROUSED.A/O X3.IRENE WELL ON RM AIR.NO SIGN SOB/DISTRESS NOTED.BREATHING EVEN AND UNLABORED. IV ACCESS RFA 22 GAUGE, INTACT AND PATENT, RUNNING NS @ 75 ML/HR. SAFETY PRECAUTIONS IN PLACE. BED IN LOWEST LOCKED POSITION, HOB ELEVATED, SIDE RAILS UP X2, AND CALL LIGHT AND TABLE WITHIN REACH.CONTINUE TO MONITOR.
[2022-07-01 20:00] VITALS: BP 120/55
--- NOTE | 2022-07-01 20:08 | NUR ---
MS RN CLOSING NOTE PT AWAKE IN BED, A/O X3 AND ABLE TO MAKE NEEDS KNOWN. PT STABLE ON ROOM AIR. NO SOB OR S/S OF RESPIRATORY DISTRESS. BREATHING EVEN AND UNLABORED. IV ACCESS RFA# 22 INTACT AND PATENT, REFUSING IVF AT THIS TIME. ALL DUE MEDS GIVEN ORDERED. TURNED AND REPOSITIONED Q2H. SAFETY PRECAUTIONS IN PLACE AT ALL TIMES. BED IN LOWEST LOCKED POSITION, HOB ELEVATED, SIDE RAILS UP X2, CALL LIGHT AND TABLE WITHIN REACH, ENDORSED TO PM SHIFT.
[2022-07-01] MEDS: FENOFIBRATE NANOCRYS (145 MG) 145 MG TABLET PO SCH (21:27)
[2022-07-01] MEDS: ATORVASTATIN 40 MG TABLET PO SCH (21:27)
[2022-07-02] MEDS: IV NS 0.9% 1,000 ML IV PRN ×2 (03:38→18:55)
--- NOTE | 2022-07-02 07:35 | NUR ---
MS RN OPENING NOTE RECEIVED PT AWAKE IN BED, A/O X3 AND ABLE TO MAKE NEEDS KNOWN. PT STABLE ON ROOM AIR, BREATHING EVEN AND UNLABORED. NO SOB OR S/S OF RESPIRATORY DISTRESS. PT C/O PAIN 07/03, WILL ADMIN PRN PAIN MED ORDERED. IV ACCESS RFA#22 GAUGE, RUNNING NS @ 75 ML/HR, NOTED REDNESS AT IV SITE. DC'D IVF AND IV ACCESS, NOTIFIED CHARGE, MIDLINE INSERTION ORDERED. SAFETY PRECAUTIONS IN PLACE. BED IN LOWEST LOCKED POSITION, HOB ELEVATED, SIDE RAILS UP X2, AND CALL LIGHT AND TABLE WITHIN REACH, WILL CONT TO MONITOR.
[2022-07-02] MEDS: HYDROCODONE/APAP 10/325MG TABLET PO PRN ×2 (07:49→13:29)
[2022-07-02] MEDS: PANTOPRAZOLE 40 MG TABLET.DR PO SCH (07:50)
[2022-07-02 08:00] VITALS: BP 119/49
[2022-07-02 08:20] LABS: BASOPHILS % (AUTO) 0.4 % (0.0-2.0); EOSINOPHILS % (AUTO) 5.3 % (0.0-6.0); HEMATOCRIT 32 % (33-45); HEMOGLOBIN 10.7 g/dL (11.5-14.8); LYMPHOCYTES # (AUTO) 1.2 K/uL (0.8-4.8); LYMPHOCYTES % (AUTO) 23.5 % (20.0-44.0); MEAN CORPUSCULAR HGB CONC 34 g/dl (31.0-36.0); MEAN CORPUSCULAR VOLUME 91 fL (82-100); MONOCYTES # (AUTO) 0.4 K/uL (0.1-1.30); MONOCYTES % (AUTO) 8.1 % (2.0-12.0); NEUTROPHILS # (AUTO) 3.1 K/uL (1.8-8.9); NEUTROPHILS % (AUTO) 62.7 % (43.0-81.0); PLATELET COUNT (AUTO) 312 K/uL (150-450); RED BLOOD CELL COUNT(AUTO) 3.52 MIL/uL (4.0-5.2)
[2022-07-02 08:32] LABS: CALCIUM, SERUM 8.4 mg/dL (8.5-10.1); CARBON DIOXIDE 29 mmol/L (21-32); CHLORIDE 107 mmol/L (98-107); CREATININE 0.7 mg/dL (0.6-1.3); GLUCOSE 94 mg/dL (74-106); POTASSIUM 4.4 mmol/L (3.5-5.1); SODIUM SERUM 141 mmol/L (136-145); UREA NITROGEN, BLOOD 29 mg/dL (7-18)
[2022-07-02] MEDS: METOPROLOL TARTRATE 25 MG TABLET PO SCH ×2 (09:00→17:00)
[2022-07-02] MEDS: GABAPENTIN 300 MG CAPSULE PO SCH ×3 (10:11→17:52)
[2022-07-02] MEDS: OXYBUTYNIN CHLORIDE 5 MG TABLET PO SCH ×3 (10:20→17:51)
[2022-07-02] MEDS: FUROSEMIDE 40 MG TABLET PO SCH (10:20)
[2022-07-02] MEDS: ASPIRIN EC 81 MG TABLET.DR PO SCH (10:20)
[2022-07-02] MEDS: CEFEPIME 1 GM in IV D5W 50 ML IV SCH (10:22)
[2022-07-02] MEDS: HEPARIN SODIUM, PORCINE 5000 UNITS/1 ML VIAL SQ SCH ×2 (10:26→21:57)
[2022-07-02] MEDS: PHENAZOPYRIDINE HCL 200 MG TABLET PO SCH ×2 (13:30→17:52)
[2022-07-02 16:00] VITALS: BP 124/59
[2022-07-02 20:00] VITALS: BP 123/55
--- NOTE | 2022-07-02 20:04 | NUR ---
MS RN CLOSING NOTES: PT AWAKE IN BED, A/O X3 AND ABLE TO MAKE NEEDS KNOWN. PT STABLE ON ROOM AIR, BREATHING EVEN AND UNLABORED. NO SOB OR S/S OF RESPIRATORY DISTRESS. IV ACCESS RFA#20 GAUGE, RUNNING NS @ 75 ML/HR. SAFETY PRECAUTIONS IN PLACE. BED IN LOWEST LOCKED POSITION, HOB ELEVATED, SIDE RAILS UP X2, AND CALL LIGHT AND TABLE WITHIN REACH, ENDORSED TO PM SHIFT.
[2022-07-02] MEDS: FENOFIBRATE NANOCRYS (145 MG) 145 MG TABLET PO SCH (21:57)
[2022-07-02] MEDS: ATORVASTATIN 40 MG TABLET PO SCH (21:57)
[2022-07-03] MEDS: HYDROCODONE/APAP 10/325MG TABLET PO PRN ×3 (02:05→17:04)
--- NOTE | 2022-07-03 06:16 | NUR ---
MS RN CLOSING NOTES: PTIN BED SLEEPING, A/O X3 AND ABLE TO MAKE NEEDS KNOWN.IRENE WELL ON ROOM AIR, BREATHING EVEN AND UNLABORED. NO SOB/DISTRESS NOTED.DUE MEDS GIVEN ORDERED.ALL NEEDS ATTENED.IV ACCESS RFA#20 GAUGE, RUNNING NS @ 75 ML/HR. SAFETY PRECAUTIONS IN PLACE. BED IN LOWEST LOCKED POSITION, HOB ELEVATED, SIDE RAILS UP X2, AND CALL LIGHT AND TABLE WITHIN REACH, ENDORSED TO NEXT SHIFT.
--- NOTE | 2022-07-03 07:27 | NUR ---
RN OPENING NOTES RECEIVED PATIENT IN BED, AWAKE, A/O X3, VERBALLY RESPONSIVE AND ABLE TO MAKE NEEDS KNOWN. STABLE ON ROOM AIR, NO SOB NOTED, BREATHING EVEN AND UNLABORED. NOTED WITH RIGHT FOREARM #22G, INTACT AND PATENT, WITH NS @ 75ML/HR RUNNING. SAFETY MEASURE IN PLACE. BED IN LOWEST AND LOCKED POSITION, SIDE RAILS UP X2, CALL LIGHT AND TABLE PLACED WITHIN EASY REACH. WILL CONTINUE TO MONITOR PATIENT
[2022-07-03 08:00] VITALS: BP 116/50
[2022-07-03] MEDS: FUROSEMIDE 40 MG TABLET PO SCH (08:35)
[2022-07-03] MEDS: GABAPENTIN 300 MG CAPSULE PO SCH ×3 (08:35→16:50)
[2022-07-03] MEDS: ASPIRIN EC 81 MG TABLET.DR PO SCH (08:36)
[2022-07-03] MEDS: PANTOPRAZOLE 40 MG TABLET.DR PO SCH (08:36)
[2022-07-03] MEDS: OXYBUTYNIN CHLORIDE 5 MG TABLET PO SCH ×3 (08:36→16:49)
[2022-07-03] MEDS: METOPROLOL TARTRATE 25 MG TABLET PO SCH ×2 (08:36→16:50)
[2022-07-03] MEDS: PHENAZOPYRIDINE HCL 200 MG TABLET PO SCH ×3 (08:37→16:50)
[2022-07-03] MEDS: HEPARIN SODIUM, PORCINE 5000 UNITS/1 ML VIAL SQ SCH (08:38)
--- NOTE | 2022-07-03 09:10 | NUR ---
RN NOTE PATIENT PICKED UP FOR CT SCAN.
[2022-07-03] MEDS ORDERED: CEFE1FRO IV (09:48)
[2022-07-03] MEDS: CEFEPIME 1 GM in IV D5W 50 ML IV SCH (10:12)
[2022-07-03 16:10] VITALS: BP 159/67
[2022-07-03 16:50] VITALS: BP 159/67
--- NOTE | 2022-07-03 18:59 | NUR ---
RN CLOSING NOTES PATIENT IN BED, ASLEEP, EASILY AROUSED. A/O X3, VERBALLY RESPONSIVE AND ABLE TO MAKE NEEDS KNOWN. REMAINS STABLE ON ROOM AIR, NO SOB NOTED, BREATHING EVEN AND UNLABORED. RIGHT FOREARM #22G, INTACT AND PATENT, WITH NS @ 75ML/HR RUNNING. SAFETY MEASURE IN PLACE. BED IN LOWEST AND LOCKED POSITION, SIDE RAILS UP X2, CALL LIGHT AND TABLE PLACED WITHIN EASY REACH. PATIENT FOR DISCHARGE TO [facility]. REPORT GIVEN TO CATHERINE SHERWOOD. PATIENT REFUSED SKIN ASSESSMENT AND PHOTO TO BE TAKEN. WILL ENDORSE TO NEXT SHIFT FOR BRANDO.
--- NOTE | 2022-07-03 19:48 | NUR ---
CALL CENTER TRAINER NOTE PATIENT STABLE UPON DC, VSS: BP 109/46, O2 94-95%, HR 89. PATIENT REPORTS NO PAIN AT THIS TIME. PATIENT WILL BE TRANSPORTED BY 2 SWITCHBOARD AND CONTROL ROOM OPERATOR TO [facility], REPORT WAS GIVEN BY CHRISTINE ALEXANDER TO PRESLEY AT [facility]. DISCHARGE PACKET PROVIDED TO PATIENT, PATIENT REFUSED TO SIGN BELONGINGS SHEET AND PHOTOS TAKEN OF WOUND ISSUES. EXIT CARE EDUCATION GIVEN.
== END 2022-07-03 21:00 | DRG 689 ==
LOC: ER 18:42 → MED 06-30 02:14
PROVIDERS: ADMIT Nurse Practitioner Acute Care; ATTEND Internal Medicine
DX: N39.0 Urinary tract infection, site not specified (principal); N17.0 Acute kidney failure with tubular necrosis; I69.354 Hemiplegia and hemiparesis following cerebral infarction affecting left non-dominant side; B96.4 Proteus (mirabilis) (morganii) as the cause of diseases classified elsewhere; I25.10 Atherosclerotic heart disease of native coronary artery without angina pectoris; E88.09 Other disorders of plasma-protein metabolism, not elsewhere classified; I10 Essential (primary) hypertension; I25.2 Old myocardial infarction; Z87.440 Personal history of urinary (tract) infections; R53.1 Weakness; E78.5 Hyperlipidemia, unspecified; R10.9 Unspecified abdominal pain; R19.7 Diarrhea, unspecified; T50.2X5A Adverse effect of carbonic-anhydrase inhibitors, benzothiadiazides and other diuretics, initial encounter; Y92.89 Other specified places as the place of occurrence of the external cause
CPT/HCPCS: 36415; 76700-TC; 80048-TC; 80061-TC; 80076-TC; 81001; 82962-TC; 83605-TC; 83690-TC; 83735-TC; 83880; 84100-TC; 85025-TC; 87040-TC; 87086-TC; 87186-TC; 97116-TC; 97530-TC; C9803; G0378; J0692; J0696; J1644; J1885; J2405; J7030; J7040; J7060